=== PATIENT | male | born 1950 | race Caucasian/White ===

== ENCOUNTER 2017-04-21 17:14 | Inpatient (IN) | payer OTHER ==
[~2017-04-21] VITALS: Ht 180.3 cm; Wt 122.7 kg
[2017-04-21 17:55] LABS: BASO % 0.3 %; BASO ABS # 0.05 K/uL (0-0.2); COMPLETE YES; EOS % 1.6 %; HEMATOCRIT 44.6 % (42-52); IG% 0.3 %; LYMPH ABS # 2.26 K/uL (1.2-3.4); MEAN CELL VOLUME 90.5 fL (80-100); MEAN CORPUSCULAR HEMOGLOBIN 29.4 pg (25-34); MEAN CORPUSCULAR HGB CONC 32.5 g/dl (32-36); MEAN PLATELET VOLUME 10.5 fL (7.4-10.4); MONO % 6.2 %; NEUT % 77.6 %; PLATELET COUNT 406 K/uL (130-400); RED BLOOD COUNT 4.93 M/uL (4.7-6.1); WHITE BLOOD COUNT 16.12 K/uL (4.8-10.8)
[2017-04-21 18:03] LABS: PROTHROMBIN TIME (PATIENT) 11.1 SECONDS (9.0-12.0)
[2017-04-21 18:17] LABS: ALT/SGPT 25 U/L (12-78); AST/SGOT 18 U/L (15-37); BLOOD UREA NITROGEN 15 mg/dl (7-18); BUN/CREATININE RATIO 13.9 (10-20); CALCIUM 9.1 mg/dl (8.5-10.1); CARBON DIOXIDE 29 mmol/L (21-32); CHLORIDE 100 mmol/L (98-107); GLUCOSE 239 mg/dl (70-99); MAGNESIUM 2.1 mg/dl (1.8-2.4); POTASSIUM 4.5 mmol/L (3.5-5.1); SODIUM 135 mmol/L (136-145)
--- NOTE | 2017-04-21 18:17 | EMERGENCY ROOM VISIT NOTE ---
History Report prepared by Kendal: aMrcie Osborn Under the Supervision of: Dr. Henrique Rai D.O. 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 The patient states that he was at the [facility] fair when he began to feel weak, dizzy, and short of breath. He reports that he has a history of cancer and had his right lung removed and notes that the shortness of breath is not unusual. He notes that he has increased leg swelling, decreased appetite, and urinary incontinence. The patient denies any chest pain. He reports a history of diabetes and states that he is not on any blood thinners. He notes that he has open wounds on both of his legs that he sees the wound clinic for. Source of History: patient Onset: just INSTRUMENT MECHANIC Position: other (global) Quality: other (SOB) Timing: constant Associated Symptoms: No chest pain Note: He notes that he has increased leg swelling, decreased appetite, and urinary incontinence. Review of Systems See HPI for pertinent positives & negatives. A total of 10 systems reviewed and were otherwise negative. Past Medical & Surgical Medical Problems: (1) Cancer (2) Diabetes Family History No pertinent family history stated. Social History Marital Status: Housing Status: lives with family Current/Historical Medications Scheduled Allopurinol (Zyloprim), 300 MG PO DAILY Furosemide (Lasix), 40 MG PO DAILY Gabapentin (Neurontin), 300 MG PO TID Glipizide (Glucotrol), 10 MG PO DAILY Lisinopril (Zestril), 2.5 MG PO DAILY Sertraline (Zoloft), 50 MG PO DAILY Simvastatin (Zocor), 20 MG PO QPM Allergies Coded Allergies: No Known Allergies (Unverified , 04/21/17) Physical Exam Vital Signs Date Time Temp Pulse Resp B/P (MAP) Pulse Ox O2 Delivery O2 Flow Rate FiO2 04/21/17 18:58 104 22 121/70 95 Nasal Cannula 4.0 04/21/17 18:42 106 20 119/71 93 Nasal Cannula 04/21/17 17:15 88 Room Air 04/21/17 17:15 38.5 120 24 131/71 88 Room Air Physical Exam GENERAL: Patient is awake, alert, very anxious appearing, appears to be in significant distress. EYES: The conjunctivae are clear. The pupils are round and reactive. EARS, NOSE, MOUTH AND THROAT: The nose is without any evidence of any deformity. Mucous membranes are moist tongue is midline NECK: The neck is nontender and supple. RESPIRATORY: Lung sounds diminished throughout with significant tachypnea and conversational dyspnea CARDIOVASCULAR: Tachycardic rate and regularrhythm noted there no murmurs rubs or gallops normal S1 normal S2 GASTROINTESTINAL: The abdomen is soft. Bowel sounds are present in all quadrants. Abdomen is nontender MUSCULOSKELETAL/EXTREMITIES: There is no evidence of gross deformity full range of motion is noted in the hips and shoulders SKIN: Diffuse erythema noted to both extremities with edema, he has an appearance of a psoriatic rash NEUROLOGIC: Patient is awake alert and oriented x3 Medical Decision & Procedures ER Provider Diagnostic Interpretation: X-ray results as stated below per interpretation by me and the radiologist. SINGLE VIEW CHEST FINDINGS: An AP, portable, upright chest radiograph is obtained. No prior studies are available for comparison at the time of dictation. The examination is degraded by portable technique and patient rotation. There is complete opacification of the right hemithorax. The left lung appears clear. The cardiac mediastinal silhouette is of secured. No pneumothorax is seen. The skeletal structures are osteopenic. Posttraumatic versus postoperative changes identified in the right sided ribs. IMPRESSION: 1. There is complete opacification of the right hemithorax. This is likely filled with fluid, and may be on a postoperative basis if there has been a history of right-sided pneumonectomy. Correlation with the clinical/surgical history will be essential. 2. The left lung appears clear. Electronically signed by: Jama Moctezuma M.D. 04/21/2017 6:57 PM Dictated Date/Time: 04/21/2017 6:56 PM Laboratory Results 04/21/17 17:10 Red Blood Count 4.93, Mean Corpuscular Volume 90.5, Mean Corpuscular Hemoglobin 29.4, Mean Corpuscular Hemoglobin Concent 32.5, Mean Platelet Volume 10.5, Neutrophils (%) (Auto) 77.6, Lymphocytes (%) (Auto) 14.0, Monocytes (%) (Auto) 6.2, Eosinophils (%) (Auto) 1.6, Basophils (%) (Auto) 0.3, Neutrophils # (Auto) 12.51, Lymphocytes # (Auto) 2.26, Monocytes # (Auto) 1.00, Eosinophils # (Auto) 0.25, Basophils # (Auto) 0.05 04/21/17 17:10 Test 04/21/17 17:10 04/21/17 18:00 04/21/17 18:06 04/21/17 18:15 White Blood Count 16.12 K/uL (4.8-10.8) Red Blood Count 4.93 M/uL (4.7-6.1) Hemoglobin 14.5 g/dL (14.0-18.0) Hematocrit 44.6 % (42-52) Mean Corpuscular Volume 90.5 fL (80-100) Mean Corpuscular Hemoglobin 29.4 pg (25-34) Mean Corpuscular Hemoglobin Concent 32.5 g/dl (32-36) Platelet Count 406 K/uL (130-400) Mean Platelet Volume 10.5 fL (7.4-10.4) Neutrophils (%) (Auto) 77.6 % Lymphocytes (%) (Auto) 14.0 % Monocytes (%) (Auto) 6.2 % Eosinophils (%) (Auto) 1.6 % Basophils (%) (Auto) 0.3 % Neutrophils # (Auto) 12.51 K/uL (1.4-6.5) Lymphocytes # (Auto) 2.26 K/uL (1.2-3.4) Monocytes # (Auto) 1.00 K/uL (0.11-0.59) Eosinophils # (Auto) 0.25 K/uL (0-0.5) Basophils # (Auto) 0.05 K/uL (0-0.2) RDW Standard Deviation 49.8 fL (36.4-46.3) RDW Coefficient of Variation 15.0 % (11.5-14.5) Immature Granulocyte % (Auto) 0.3 % Immature Granulocyte # (Auto) 0.05 K/uL (0.00-0.02) Erythrocyte Sedimentation Rate > 90 mm/hr (0-14) Prothrombin Time 11.1 SECONDS (9.0-12.0) Prothromb Time International Ratio 1.0 (0.9-1.1) Activated Partial Thromboplast Time 26.2 SECONDS (21.0-31.0) Partial Thromboplastin Ratio 1.0 Anion Gap 6.0 mmol/L (3-11) Est Creatinine Clear Calc Drug Dose 85.9 ml/min Estimated GFR () 79.5 Estimated GFR (Non- 68.6 BUN/Creatinine Ratio 13.9 (10-20) Calcium Level 9.1 mg/dl (8.5-10.1) Phosphorus Level 2.2 mg/dl (2.5-4.9) Magnesium Level 2.1 mg/dl (1.8-2.4) Total Bilirubin 0.5 mg/dl (0.2-1) Aspartate Amino Transf (AST/SGOT) 18 U/L (15-37) Alanine Aminotransferase (ALT/SGPT) 25 U/L (12-78) Alkaline Phosphatase 133 U/L (45-117) Total Creatine Kinase 47 U/L (39-308) Creatine Kinase MB 0.5 ng/ml (0.5-3.6) Creatine Kinase MB Ratio 1.1 (0-3.0) Troponin I < 0.015 ng/ml (0-0.045) C-Reactive Protein 3.88 mg/dl (0-0.29) Pro-B-Type Natriuretic Peptide 99 pg/ml (0-900) Total Protein 8.7 gm/dl (6.4-8.2) Albumin 3.2 gm/dl (3.4-5.0) Globulin 5.5 gm/dl (2.5-4.0) Albumin/Globulin Ratio 0.6 (0.9-2) Lipase 146 U/L (73-393) Thyroid Stimulating Hormone (TSH) 2.050 uIu/ml (0.300-4.500) Venous Blood pH 7.37 (7.36-7.41) Venous Blood Partial Pressure CO2 57 mmHg (38.0-50.0) Venous Blood Partial Pressure O2 36 mmHg Venous Blood HCO3 32 mmol/L Venous Blood Oxygen Saturation 68.6 % Venous Blood Base Excess 4.9 mEq/L Bedside Lactic Acid Venous 2.19 mmol/L (0.90-1.70) Test 04/21/17 19:46 Laboratory results per my review. Medications Administered Medications (Trade) Dose Ordered Sig/Hunter Route Start Time Stop Time Status Last Admin Dose Admin Sodium Chloride 1,000 ml @ 999 mls/hr Q1H1M STAT IV 04/21/17 19:34 04/21/17 20:34 04/21/17 20:05 999 MLS/HR Sodium Chloride 1,000 ml @ 250 mls/hr Q4H STAT IV 04/21/17 19:34 04/21/17 23:33 04/21/17 20:05 250 MLS/HR Piperacillin Sod/ Tazobactam Sod (Zosyn Iv) 4.5 gm NOW STAT IV 04/21/17 19:34 04/21/17 19:35 DC 04/21/17 20:04 4.5 GM ECG Indication: SOB/dyspnea Rate (beats per minute): 108 Rhythm: sinus tachycardia Findings: 1st degree AV block, RBBB Comparison ECG Date: no prior available ED Course 1722: The patient was evaluated in room A7. A complete history and physical examination were performed. 1845: I reevaluated and updated the patient. 1933: Zosyn IV 4.5gm IV, NSS 1,000 ml @ 250 mls/hr IV, NSS 1,000 ml @ 999 mls/ hr IV. 1935: I discussed the patient's case with Dr. Sharif Giron. The patient will be evaluated for further management. 1941: Upon reevaluation, the patient is doing well. I discussed results and treatment plan with the patient. He verbalizes agreement and understanding. I spoke with Dr. Packer. The patient will be evaluated for further management and care. Medical Decision Differential diagnosis: Etiologies such as infections, reactive airway disease, pneumonia, pneumothorax , COPD, CHF, cardiac ischemia, pulmonary embolism, musculoskeletal, gastrointestinal, as well as others were entertained. Nursing notes reviewed. The patient is a 66-year-old male who presented to the emergency department for an evaluation of a fever as well as lower extremity erythema. He also describes difficulty breathing. He was very dyspneic on my initial valuation. The chest x- ray did not show signs of pulmonary edema or pneumonia. I discussed the patient' s laboratory radiographic studies with him. He was treated with IV fluids and IV antibiotics in emergency department. I discussed his case with the on-call [facility] hospitalist group. They've agreed to evaluate the patient in the emergency apartment for further management and disposition. Medication Reconcilliation Current Medication List: was personally reviewed by me Blood Pressure Screening Patient's blood pressure: Normal blood pressure Blood pressure disposition: Did not require urgent referral Consults Time Called: 1929 Consulting Physician: Dr. Sharif Giron Returned Call: 1935 I discussed the patient's case with Dr. Sharif Giron. The patient will be evaluated for further management. Impression Primary Impression: Cellulitis Additional Impressions: SOB (shortness of breath) Fever Hypoxia Scribe Attestation The scribe's documentation has been prepared under my direction and personally reviewed by me in its entirety. I confirm that the note above accurately reflects all work, treatment, procedures, and medical decision making performed by me. Departure Information Dispostion Being Evaluated By Hospitalist Referrals No Doctor, Assigned (PCP) Problem Qualifiers Primary Impression: Cellulitis Site of cellulitis: extremity Site of cellulitis of extremity: lower extremity Laterality: unspecified laterality Qualified Codes: L03.119 - Cellulitis of unspecified part of limb Additional Impressions: Fever Fever type: unspecified Qualified Codes: R50.9 - Fever, unspecified
[2017-04-21 18:19] LABS: VEN BLD GAS O2 SATURATION 68.6 %; VEN BLOOD GAS BASE EXCESS 4.9 mEq/L
[2017-04-21 18:20] LABS: ALB/GLOB RATIO 0.6 (0.9-2); ALKALINE PHOSPHATASE 133 U/L (45-117); C-REACTIVE PROTEIN 3.88 mg/dl (0-0.29); CKMB/CK RATIO 1.1 (0-3.0); PHOSPHORUS 2.2 mg/dl (2.5-4.9)
--- NOTE | 2017-04-21 18:59 | DIAGNOSTIC IMAGING REPORT ---
SINGLE VIEW CHEST CLINICAL HISTORY: Sepsis. Dyspnea. FINDINGS: An AP, portable, upright chest radiograph is obtained. No prior studies are available for comparison at the time of dictation. The examination is degraded by portable technique and patient rotation. There is complete opacification of the right hemithorax. The left lung appears clear. The cardiac mediastinal silhouette is of secured. No pneumothorax is seen. The skeletal structures are osteopenic. Posttraumatic versus postoperative changes identified in the right sided ribs. IMPRESSION: 1. There is complete opacification of the right hemithorax. This is likely filled with fluid, and may be on a postoperative basis if there has been a history of right-sided pneumonectomy. Correlation with the clinical/surgical history will be essential. 2. The left lung appears clear. Electronically signed by: Jama Moctezuma M.D. 04/21/2017 6:57 PM Dictated Date/Time: 04/21/2017 6:56 PM
[2017-04-21] MEDS ORDERED: GLIP10TA9 PO (19:26)
[2017-04-21] MEDS ORDERED: LISI-789 PO (19:26)
[2017-04-21] MEDS ORDERED: ALLO300T2 PO (19:26)
[2017-04-21] MEDS ORDERED: SERT-234 PO (19:26)
[2017-04-21] MEDS ORDERED: SIMV20TA2 PO (19:26)
[2017-04-21] MEDS ORDERED: GABA-113 PO (19:26)
[2017-04-21] MEDS ORDERED: FRS/40 PO (19:26)
[2017-04-21] MEDS ORDERED: PIPERACILLIN/TAZOBACTAM 4.5 GM/100ML D5W IV STA (19:34)
[2017-04-21] MEDS ORDERED: SODIUM CHLORIDE 0.9% 1000ML 1,000 ML IV STA ×2 (19:34)
[2017-04-21] MEDS ORDERED: LEVALBUTEROL/IPRATROPIUM NEB INH STA (20:21)
[2017-04-21] MEDS ORDERED: ACETAMINOPHEN 325 MG TAB PO ONE (20:21)
[2017-04-21] MEDS ORDERED: ACETAMINOPHEN 325 MG TAB PO PRN ×2 (20:30→23:15)
[2017-04-21] MEDS ORDERED: LEVALBUTEROL/IPRATROPIUM NEB INH PRN (20:30)
[2017-04-21 20:41] LABS: ALLEN TEST POS (POS); ARTERIAL BLD GAS O2 SATURATION 95.9 % (90-95); ARTERIAL BLOOD GAS BASE EXCESS 4.9 mEq/L (-9-1.8); ARTERIAL BLOOD GAS HCO3 31 mmol/L (19-24); ARTERIAL BLOOD GAS PO2 85 mm/Hg (80-95); ARTERIAL BLOOD GAS pH 7.39 (7.35-7.45); O2 ADMINISTRATION 4 L
[2017-04-21] MEDS ORDERED: IPRATROPIUM BROMIDE NEB SOLN 0.02% 2.5 ML VIAL INH PRN (20:45)
[2017-04-21] MEDS ORDERED: LEVALBUTEROL 1.25MG/0.5ML NEB INH PRN (20:45)
[2017-04-21 20:49] VITALS: PULSE 96; O2SAT 98
[2017-04-21] MEDS ORDERED: LEVALBUTEROL 1.25MG/0.5ML NEB INH SCH (21:45)
[2017-04-21] MEDS ORDERED: IPRATROPIUM BROMIDE NEB SOLN 0.02% 2.5 ML VIAL INH ONE (21:45)
[2017-04-21 22:08] LABS: URINE APPEARANCE TURBID (CLEAR); URINE BILIRUBIN NEG (NEG); URINE COLOR YELLOW; URINE EPITHELIAL CELL AUTO >30 /lpf (0-5); URINE NITRITE NEG (NEG); UROBILINOGEN NEG (NEG); ZZUR CULT IF INDIC CLEAN CATCH NO
[2017-04-21 22:12] LABS: MANUAL MICROSCOPIC REQUIRED? NO; REVIEW REQ? NO
[2017-04-21] MEDS ORDERED: OPTIRAY 320 IV PRN (23:00)
[2017-04-21] MEDS ORDERED: INSULIN GLARGINE SOLOSTAR 100 UNITS/ML 3 ML PEN SC ONE (23:02)
[2017-04-21] MEDS ORDERED: INSULIN ASPART 100 UNITS/ML 3 ML PEN SC ONE (23:03)
[2017-04-21] MEDS ORDERED: GLUCOSE 10 TABS/TUBE PO PRN (23:15)
[2017-04-21] MEDS ORDERED: GLUCAGON FOR INJ 1 MG VIAL SQ PRN (23:15)
[2017-04-21] MEDS ORDERED: TRAMADOL HCL 50 MG TAB PO PRN (23:15)
[2017-04-21] MEDS ORDERED: SODIUM CHLORIDE 0.9% 1000ML 1,000 ML IV ONE (23:15)
[2017-04-21] MEDS ORDERED: MoRPHine SULFATE 4 MG/ML 1 ML CARP\\VIAL IV PRN (23:15)
[2017-04-21] MEDS ORDERED: ONDANSETRON INJ 2 MG/ML 2 ML VIAL IV PRN (23:15)
[2017-04-21] MEDS ORDERED: DEXTROSE 50% 50 ML SYR IV PRN (23:15)
[2017-04-21] MEDS ORDERED: GLUCOSE 40% GEL 15 GM TUBE PO PRN (23:15)
[2017-04-21] MEDS ORDERED: NITROGLYCERIN 0.4 MG SL PER TAB CHARGE SL PRN (23:15)
[2017-04-21] MEDS ORDERED: INSULIN GLARGINE SOLOSTAR 100 UNITS/ML 3 ML PEN SC STA (23:17)
[2017-04-21] MEDS ORDERED: METHYLPREDNISOLONE IV 20 MG in SYRINGE 0 ML IV STA (23:18)
[2017-04-22] VITALS (11 sets, daily range): BP systolic 100–160; BP diastolic 65–90; PULSE 83–98; TEMP 36.4–36.8; O2SAT 92–100; Ht 180.3 cm; Wt 122.7 kg
[2017-04-22] MEDS: IPRATROPIUM BROMIDE NEB SOLN 0.02% 2.5 ML VIAL INH SCH ×4 (01:42→19:29)
[2017-04-22] MEDS: LEVALBUTEROL 1.25MG/0.5ML NEB INH SCH ×4 (01:42→19:29)
[2017-04-22] MEDS ORDERED: DOXYCYCLINE IV 100 MG in DEXTROSE 5% 100ML 100 ML IV ONE (02:33)
[2017-04-22] MEDS ORDERED: LEVALBUTEROL/IPRATROPIUM NEB INH SCH (03:00)
[2017-04-22 05:52] LABS: BASO % 0.3 %; BASO ABS # 0.04 K/uL (0-0.2); COMPLETE YES; EOS % 0.1 %; HEMATOCRIT 44.4 % (42-52); IG% 0.2 %; LYMPH % 10.4 %; MEAN CORPUSCULAR HEMOGLOBIN 28.9 pg (25-34); MEAN CORPUSCULAR HGB CONC 31.8 g/dl (32-36); MONO % 0.7 %; NEUT % 88.3 %; PLATELET COUNT 335 K/uL (130-400); RED BLOOD COUNT 4.88 M/uL (4.7-6.1); WHITE BLOOD COUNT 12.46 K/uL (4.8-10.8)
[2017-04-22 06:17] LABS: BLOOD UREA NITROGEN 14 mg/dl (7-18); BUN/CREATININE RATIO 13.8 (10-20); CARBON DIOXIDE 33 mmol/L (21-32); CHLORIDE 99 mmol/L (98-107); GLUCOSE 325 mg/dl (70-99); POTASSIUM 4.4 mmol/L (3.5-5.1); SODIUM 136 mmol/L (136-145)
[2017-04-22 06:27] LABS: BETA-HYDROXYBUTYRATE 7.57 mg/dL (0.2-2.81)
[2017-04-22] MEDS ORDERED: INSULIN ASPART 100 UNITS/ML 3 ML PEN SC ONE (06:29)
[2017-04-22] MEDS ORDERED: INSULIN GLARGINE SOLOSTAR 100 UNITS/ML 3 ML PEN SC STA (06:34)
[2017-04-22] MEDS ORDERED: INSULIN GLARGINE SOLOSTAR 100 UNITS/ML 3 ML PEN SC ONE (06:38)
[2017-04-22] MEDS ORDERED: SODIUM CHLORIDE 0.9% 500ML 500 ML IV ONE (06:45)
--- NOTE | 2017-04-22 06:55 | DIAGNOSTIC IMAGING REPORT ---
GALLBLADDER-ABD LIMITED HISTORY: 66 years-old Male fever, decreased appetite, ro cholecystitis COMPARISON: CTA of the chest of same day TECHNIQUE: Multiple real-time sonographic images of the abdominal upper quadrant were obtained assessing grayscale appearance and color flow. FINDINGS: Pancreas is difficult to visualize secondary to body habitus and obscuring bowel gas the imaged portions appearing to be unremarkable. The patient also perfuses to be placed in the decubitus position. The hepatic parenchyma is diffusely echogenic with poor through transmission compatible with fatty infiltration. There appears be a cluster of cysts within the left lobe the liver which overall measures up to approximately 1.4 x 1.0 x 0.7 cm with thin internal septa. These lesions can also be seen on the CT the chest of same day. Liver measures up to 18.7 cm in greatest dimension. Colonic stallworth the nipple limits of normal at 3 mm. No common bile duct dilation. Common bile duct measures up to 3.5 mm. Stones and layering sludge are seen within the gallbladder lumen. There is minimal pericholecystic fluid near the gallbladder fundus. Sonographic Riggs sign reported as negative. Imaged right kidney is unremarkable without hydronephrosis. IMPRESSION: 1. Cholelithiasis and gallbladder sludge noted with the gallbladder wall measuring in the upper limits of normal with adjacent trace pericholecystic fluid. These findings are suspicious for developing acute cholecystitis. 2. Hepatomegaly with hepatosteatosis. 3. No biliary duct dilation. 4. Mildly limited study as above. The above report was generated using voice recognition software. It may contain grammatical, syntax or spelling errors. Electronically signed by: Alfredo Richards M.D. 04/22/2017 6:54 AM Dictated Date/Time: 04/22/2017 6:49 AM
[2017-04-22] MEDS ORDERED: INSULIN ASPART 100 UNITS/ML 3 ML PEN SC SCH (07:00)
--- NOTE | 2017-04-22 07:19 | HISTORY & PHYSICAL EXAMINATION ---
DATE OF ADMISSION: 04/21/2017 PRIMARY CARE DOCTOR: From the [place], JOANA Harris CHIEF COMPLAINT: Breathing difficulty. HISTORY OF PRESENT ILLNESS: History obtained from the patient, , and ER provider. Patient is a resident of [facility] currently in town for the [facility]. Medical history significant for right lung cancer status post surgery, incomplete chemotherapy secondary to intolerance (2011), chronic respiratory failure on home O2, ANGELES on CPAP, Agent orange exposure, past tobacco abuse, hypertension, DM2 insulin requiring, mood disorder, gout. Chronic sacral, leg sores. Yesterday, he began feeling weak, dizzy, more short of breath than usual. No unusual cough symptoms. No chest pain. Patient denies abdominal pain. Some leg swelling, no unusual drainage from the legs, poor appetite. Some urinary incontinence. At the Emergency Room, the patient received Zosyn for sepsis. MEDICAL HISTORY: As above. Wound Care center visits in [place], [place]. SURGERIES: lung lobectomy, hernia surgery. HOME MEDICATIONS: Include Lantus 70 units at night as per , Zyloprim, Lasix , Glucotrol, Neurontin, Zestril, Zoloft, and Zocor. ALLERGIES: No known drug allergies. FAMILY HISTORY: Diabetes. PERSONAL AND SOCIAL HISTORY: Past tobacco abuse. No chronic intake of alcoholic beverages. Retired truck terminal manager. REVIEW OF SYSTEMS: As per HPI, all other ROS negative. PHYSICAL EXAMINATION: VITAL SIGNS: Blood pressure was noted to be 131/70, pulse rate 120, RR 24-26, sats 88 on room air. 94 on 4 liters. GENERAL: Noted to be in minimal respiratory distress, morbidly obese. SKIN: Normal color. HEENT: [place] palpebral conjunctivae. Dry mucosa. NECK: Short neck. LUNGS: Occasional wheeze. HEART: Tachycardic. ABDOMEN: Some distention. No overt tenderness. EXTREMITIES: Leg wrappings on both lower extremities BACK: Tender induration on the sacrum. NEUROLOGIC: No gross focality. LABORATORY AND IMAGING DATA: Hemoglobin was noted to be 14.5, hematocrit 41.60, white cells 16.12, platelets 406. Sodium noted to be 140, potassium 3.7, chloride 100, CO2 of 29, BUN 50, creatinine 1, glucose noted to be 239. trop 0 Lactic acid 1.2. pH 7.39, pCO2 50, pO2 85 on 4 liters. EKG as per my interpretation rate 110, RAD, right bundle branch block CT pelvis, no fluid collection to suggest abscess, infrarenal abdominal aortic aneurysm measuring [address] chest, no pulmonary embolism, no postop changes right pneumonectomy with fluid collection, calcification, aneurysmal dilatation of ascending aorta, distended gallbladder with gallstones, mild fatty liver, right adrenal palpable myelolipoma UA TRACE WBC ESTERASE, KETONES, WBC 1-5 ASSESSMENT: 1. Sepsis possible sources : lower extremity cellulitis/wounds, sacral swelling ? UTI ro gallbladder pathology. 2. Chronic respiratory failure on home O2 ANGELES on CPAP some amount of respiratory distress/wheezing initially noted at the ER 3. history of lung cancer status post surgery and chemotherapy (2011) 4. HTN, stable 5. DM2, insulin requiring currently hyperglycemic unknown control at home. 6. past tobacco abuse 7. Bilateral leg swelling secondary to cellulitis ro DVT 8. PVD on CT PLAN: PCU. IVF Cultures. Doxycycline, Zosyn for now. Check a gallbladder ultrasound ro cholecystitis. Lower extremity ultrasound, rule out DVT. Nebs prn wheezing, Solu-Medrol 1 dose. basal Lantus, ISS BG goal 140-180, check hemoglobin A1c Periodic outpatient follow-up surveillance imaging for PVD on CT PT, OT eval. DVT prophylaxis, Lovenox subQ. Full code. Patient's requesting for updates from providers. Mrs. Charisma Estrada at [phone]. MTDD
--- NOTE | 2017-04-22 07:26 | DIAGNOSTIC IMAGING REPORT ---
CT ANGIOGRAPHY OF THE CHEST, PULMONARY EMBOLUS PROTOCOL CLINICAL HISTORY: Shortness of breath and hypoxia. COMPARISON STUDY: Chest radiograph April 21, 2017. TECHNIQUE: Following IV administration of 92 mL of Optiray-320, helical axial images of the chest were obtained utilizing the pulmonary embolus protocol. Maximal intensity projections and sagittal and coronal reformats were viewed on an independent 3D workstation. IV contrast was administered without complication. A dose lowering technique was utilized adhering to the principles of ALARA. FINDINGS: No pulmonary emboli are identified. The patient is status post right pneumonectomy. There is fluid within the right pneumonectomy cavity as expected. There is mild thickening and calcification at the periphery of the pneumonectomy cavity. This is likely within normal limits. No enlarged thoracic nodes are present. Central airways are patent. There is no pneumothorax or left pleural effusion. No suspicious osseous lesions are present. There are gallstones within the gallbladder. The gallbladder is mildly distended without pericholecystic infiltration. A 2.7 cm fat-containing right adrenal lesion suggest a myelolipoma which is benign. There is a suspected lateral segment hepatic cyst. There may be fatty infiltration of the liver. IMPRESSION: 1. No pulmonary emboli identified. 2. Status post right pneumonectomy. Fluid-filled pneumonectomy cavity as expected. Soft tissue thickening and calcification at the periphery of the pneumonectomy cavity is likely within normal limits although could be correlated with prior post operative imaging studies to ensure stability. 3. Moderate cardiomegaly and moderate coronary artery calcification. No pericardial effusion. No thoracic aortic dissection. 4. Cholelithiasis with mild gallbladder distention. No pericholecystic infiltration. This could be correlated with right upper quadrant pain. Electronically signed by: Lincoln Kat M.D. 04/22/2017 7:24 AM Dictated Date/Time: 04/22/2017 7:14 AM
--- NOTE | 2017-04-22 07:28 | DIAGNOSTIC IMAGING REPORT ---
PELVIS W/IV CONT ONLY (CT) HISTORY: 66 years-old Male presents with acute pelvic pain. Concern for pelvic abscess. COMPARISON: Right upper quadrant ultrasound 04/21/2017 TECHNIQUE: Multiple axial CT images of the pelvis were obtained following the intravenous administration of 92 mL Optiray 320. A dose lowering technique was used consistent with the principals of CATIE. FINDINGS: Fusiform aneurysmal dilation of the infrarenal abdominal aorta is partially imaged measuring up to 4.1 x 4.1 cm in AP and transverse dimension. There is a moderate degree of mixed plaquing involving the aorta and iliac vasculature. There are scattered mildly prominent inguinal and iliac chain lymph nodes seen with central fatty melodie. Index right external iliac chain lymph node is seen measuring 2.0 x 1.5 cm on image 146. Index enlarged left inguinal chain lymph node is seen on image 284 measuring 2.2 x 1.2 cm. There is mild to moderate atrophy of the gluteal musculature. No focal phlegmon or drainable fluid collection is seen within the soft tissues. The imaged inferior pole kidneys appear unremarkable. Imaged bowel is within normal limits without focal wall thickening or inflammatory changes identified. The appendix and terminal ileum also appear to be normal. No pelvic abscess is identified. Prostate is mildly prominent with central coarse parenchymal calcifications. Facet arthropathy involves the lower lumbar spine. There is mild intervertebral disc space narrowing at L5-S1. IMPRESSION: 1. No acute intrapelvic abnormality identified. No focal phlegmon or pelvic abscess identified. 2. Partially imaged fusiform infrarenal abdominal aortic aneurysm is seen, 4.1 x 4.1 cm. 3. Nonspecific prominent and mildly enlarged pelvic sidewall, bilateral iliac and inguinal chain adenopathy as above. 4. Normal appendix. The above report was generated using voice recognition software. It may contain grammatical, syntax or spelling errors. Electronically signed by: Alfredo Richards M.D. 04/22/2017 7:27 AM Dictated Date/Time: 04/22/2017 7:20 AM
[2017-04-22 07:31] LABS: ESTIMATED AVERAGE GLUCOSE 235 mg/dl; HA1C FLAG Normal (Normal)
--- NOTE | 2017-04-22 07:32 | DIAGNOSTIC IMAGING REPORT ---
VENOUS DOPPLER LWR EXT BILA CLINICAL HISTORY: 66 years-old Male presenting with leg swelling. TECHNIQUE: Real-time grayscale and color and spectral Doppler ultrasound imaging of the veins of the bilateral lower extremities was performed. Compression and augmentation were also utilized. COMPARISON: None. FINDINGS: Right: Common femoral vein: Patent. Femoral vein: Patent. Greater saphenous vein: Patent. Popliteal vein: Patent. Calf veins: Limited visualization. Left: Common femoral vein: Patent. Femoral vein: Patent. Greater saphenous vein: Patent. Popliteal vein: Patent. Calf veins: Limited visualization. Other: None. IMPRESSION: No evidence of deep venous thrombosis. Electronically signed by: Moy Colunga M.D. 04/22/2017 7:31 AM Dictated Date/Time: 04/22/2017 7:30 AM
[2017-04-22] MEDS ORDERED: SODIUM CHLORIDE 0.9% 1000ML 1,000 ML IV ONE (08:00)
[2017-04-22] MEDS: GABAPENTIN 300 MG CAP PO SCH ×3 (08:18→20:32)
[2017-04-22] MEDS: SERTRALINE HCL 50 MG TAB PO SCH (08:19)
[2017-04-22] MEDS: ALLOPURINOL 300 MG TAB PO SCH (08:19)
[2017-04-22] MEDS: LISINOPRIL 2.5 MG TAB PO SCH (08:19)
[2017-04-22] MEDS: INSULIN ASPART 100 UNITS/ML 3 ML PEN SC SCH ×4 (08:21→20:35)
[2017-04-22] MEDS: ENOXAPARIN 40 MG/0.4 ML SYR SC SCH (08:49)
[2017-04-22] MEDS ORDERED: INSULIN GLARGINE SOLOSTAR 100 UNITS/ML 3 ML PEN SC SCH ×2 (09:00→21:00)
[2017-04-22] MEDS ORDERED: PIPERACILL/TAZOBAC CONSULT ACTIVE PRN (09:00)
--- NOTE | 2017-04-22 11:59 | Progress Note ---
Medicine Progress Note Date & Time of Visit: Apr 22, 2017 at 09:20 . Subjective No fever. Dyspnea at baseline. No significant cough. No chest pain. No abdominal pain, nausea, vomiting. No urinary symptoms. . Objective Last 8 Hrs Date Time Temp Pulse Resp B/P (MAP) Pulse Ox O2 Delivery O2 Flow Rate FiO2 04/22/17 11:12 36.4 86 20 123/70 (87) 96 Nasal Cannula 3.0 04/22/17 08:00 Nasal Cannula 3.0 CPAP 04/22/17 07:15 36.6 93 20 117/72 (87) 95 BiPAP 04/22/17 07:14 84 16 94 BiPAP/CPAP 3.0 04/22/17 04:30 CPAP 3.0 04/22/17 04:24 36.4 83 20 156/90 (112) 95 CPAP 3.0 Physical Exam: General- no acute distress Eyes- anicteric Lungs- decreased breath sounds right hemithorax Heart- RRR Abdomen- + BS, soft, mild-moderate RUQ tenderness to deep palpation without rebound or guarding Extremities- 2+ pretibial edema Neuro- alert 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 Laboratory Results: Last 24 Hours Test 04/21/17 17:10 04/21/17 18:00 04/21/17 18:06 04/21/17 18:15 White Blood Count 16.12 K/uL Red Blood Count 4.93 M/uL Hemoglobin 14.5 g/dL Hematocrit 44.6 % Mean Corpuscular Volume 90.5 fL Mean Corpuscular Hemoglobin 29.4 pg Mean Corpuscular Hemoglobin Concent 32.5 g/dl Platelet Count 406 K/uL Mean Platelet Volume 10.5 fL Neutrophils (%) (Auto) 77.6 % Lymphocytes (%) (Auto) 14.0 % Monocytes (%) (Auto) 6.2 % Eosinophils (%) (Auto) 1.6 % Basophils (%) (Auto) 0.3 % Neutrophils # (Auto) 12.51 K/uL Lymphocytes # (Auto) 2.26 K/uL Monocytes # (Auto) 1.00 K/uL Eosinophils # (Auto) 0.25 K/uL Basophils # (Auto) 0.05 K/uL RDW Standard Deviation 49.8 fL RDW Coefficient of Variation 15.0 % Immature Granulocyte % (Auto) 0.3 % Immature Granulocyte # (Auto) 0.05 K/uL Erythrocyte Sedimentation Rate > 90 mm/hr Prothrombin Time 11.1 SECONDS Prothromb Time International Ratio 1.0 Activated Partial Thromboplast Time 26.2 SECONDS Partial Thromboplastin Ratio 1.0 Sodium Level 135 mmol/L Potassium Level 4.5 mmol/L Chloride Level 100 mmol/L Carbon Dioxide Level 29 mmol/L Anion Gap 6.0 mmol/L Blood Urea Nitrogen 15 mg/dl Creatinine 1.10 mg/dl Est Creatinine Clear Calc Drug Dose 85.9 ml/min Estimated GFR () 79.5 Estimated GFR (Non- 68.6 BUN/Creatinine Ratio 13.9 Random Glucose 239 mg/dl Calcium Level 9.1 mg/dl Phosphorus Level 2.2 mg/dl Magnesium Level 2.1 mg/dl Total Bilirubin 0.5 mg/dl Aspartate Amino Transf (AST/SGOT) 18 U/L Alanine Aminotransferase (ALT/SGPT) 25 U/L Alkaline Phosphatase 133 U/L Total Creatine Kinase 47 U/L Creatine Kinase MB 0.5 ng/ml Creatine Kinase MB Ratio 1.1 Troponin I < 0.015 ng/ml C-Reactive Protein 3.88 mg/dl Pro-B-Type Natriuretic Peptide 99 pg/ml Total Protein 8.7 gm/dl Albumin 3.2 gm/dl Globulin 5.5 gm/dl Albumin/Globulin Ratio 0.6 Lipase 146 U/L Estimated Average Glucose 235 mg/dl Hemoglobin A1c 9.8 % Thyroid Stimulating Hormone (TSH) 2.050 uIu/ml Venous Blood pH 7.37 Venous Blood Partial Pressure CO2 57 mmHg Venous Blood Partial Pressure O2 36 mmHg Venous Blood HCO3 32 mmol/L Venous Blood Oxygen Saturation 68.6 % Venous Blood Base Excess 4.9 mEq/L Bedside Lactic Acid Venous 2.19 mmol/L Test 04/21/17 20:32 04/21/17 21:49 04/21/17 23:50 04/22/17 05:37 Arterial Blood pH 7.39 Arterial Blood Partial Pressure CO2 53 mmHg Arterial Blood Partial Pressure O2 85 mm/Hg Arterial Blood HCO3 31 mmol/L Arterial Blood Oxygen Saturation 95.9 % Arterial Blood Base Excess 4.9 mEq/L Arterial Blood Gas Delivery 4 L Jeffery Test POS Lactic Acid Level 1.2 mmol/L Urine Color YELLOW Urine Appearance TURBID Urine pH 5.0 Urine Specific [place] 1.030 Urine Protein 1+ Urine Glucose (UA) NEG Urine Ketones TRACE Urine Occult Blood NEG Urine Nitrite NEG Urine Bilirubin NEG Urine Urobilinogen NEG Urine Leukocyte Esterase TRACE Urine WBC (Auto) 5-10 /hpf Urine RBC (Auto) 0-4 /hpf Urine Hyaline Casts (Auto) 1-5 /lpf Urine Epithelial Cells (Auto) >30 /lpf Urine Bacteria (Auto) NEG Bedside Glucose 202 mg/dl White Blood Count 12.46 K/uL Red Blood Count 4.88 M/uL Hemoglobin 14.1 g/dL Hematocrit 44.4 % Mean Corpuscular Volume 91.0 fL Mean Corpuscular Hemoglobin 28.9 pg Mean Corpuscular Hemoglobin Concent 31.8 g/dl Platelet Count 335 K/uL Mean Platelet Volume 10.0 fL Neutrophils (%) (Auto) 88.3 % Lymphocytes (%) (Auto) 10.4 % Monocytes (%) (Auto) 0.7 % Eosinophils (%) (Auto) 0.1 % Basophils (%) (Auto) 0.3 % Neutrophils # (Auto) 10.99 K/uL Lymphocytes # (Auto) 1.30 K/uL Monocytes # (Auto) 0.09 K/uL Eosinophils # (Auto) 0.01 K/uL Basophils # (Auto) 0.04 K/uL RDW Standard Deviation 50.2 fL RDW Coefficient of Variation 14.9 % Immature Granulocyte % (Auto) 0.2 % Immature Granulocyte # (Auto) 0.03 K/uL Sodium Level 136 mmol/L Potassium Level 4.4 mmol/L Chloride Level 99 mmol/L Carbon Dioxide Level 33 mmol/L Anion Gap 4.0 mmol/L Blood Urea Nitrogen 14 mg/dl Creatinine 1.00 mg/dl Est Creatinine Clear Calc Drug Dose 94.3 ml/min Estimated GFR () 89.2 Estimated GFR (Non- 77.0 BUN/Creatinine Ratio 13.8 Random Glucose 325 mg/dl Calcium Level 9.0 mg/dl Troponin I < 0.015 ng/ml Beta-Hydroxybutyric Acid 7.57 mg/dL Test 04/22/17 06:43 04/22/17 07:57 Bedside Glucose 280 mg/dl 307 mg/dl Date/Time Source Procedure Growth Status 04/21/17 18:18 Blood Blood Culture Pending Received 04/21/17 18:00 Blood Blood Culture Pending Received 04/21/17 21:49 Urine , Clean Catch Urine Culture Pending Received Assessment & Plan PROBABLE SEPSIS Met criteria for sepsis per 2001 definition and current CMS guidelines. Temp was 38.5. Pulse 120 Resp 24 WBC 16,120 Lactate 2.19 Hemodynamically stable. Possible sources: pulmonary increasing dyspnea, stable cough, no left lung infiltrates on CXR or CT, postsurgical changes right hemithorax cellulitis chronic erythema and superficial ulcerations lower extremities , no change per patient biliary as discussed below Blood and urine cultures obtained in ED. Started on broad spectrum antibiotic coverage with piperacillin / tazobactam and doxycycline pending more data. Remains hemodynamically stable. Afebrile. Repeat lactate was 1.2. CHOLELITHIASIS / POSSIBLE CHOLECYSTITIS Cholelithiasis noted on CT of chest. US demonstrated cholelithiasis and gallbladder sludge with adjacent trace pericholecystic fluid. LFT's essentially normal. May have cholecystitis. HIDA scan ordered. Consult General Surgery once results of HIDA available. WORSENING DYSPNEA / CHRONIC HYPOXIC RESPIRATORY FAILURE Chronic SOB. History of COPD + lung Ca with right pneumonectomy. Uses supplemental O2 during most of the day and uses O2 with CPAP at night. O2 sat in ED on RA 88%. Worsening SOB at time of presentation could be due to respiratory infection, sepsis, or other factors. Pulmonary embolism ruled out by CTA. Pt states that dyspnea now back to baseline. Continue O2, nebs. HYPERTENSION Hemodynamically stable. DM TYPE 2 Not well controlled. Random glucose in ED 239. FBS this morning 325. Hgb A1C 9.8. Received methylprednisolone 20 mg x 1 in ED. Patient uses insulin at home, but doesn't know the dose. Manage with Lantus + NovoLog per protocol. Insulin infusion may be warranted if glycemic control does not improve. VTE PROPHYLAXIS Enoxaparin. INCOMPLETE DATA Patient uncertain about meds and details of medical history. Records from [place] requested. DISPOSITION To be determined. Receives primary care at [facility] and hospital care at [facility]. . Procedures: CTA chest CT pelvis US gallbladder venous duplex lower extremities IV meds . Current Inpatient Medications: Current Inpatient Medications Medications (Trade) Dose Ordered Sig/Hunter Route Start Time Stop Time Status Last Admin Dose Admin Ipratropium [place] (Atrovent 0.02% 0.5MG/2.5ML Neb) 0.5 mg Q4R PRN INH 04/21/17 20:45 05/21/17 20:44 Levalbuterol (Xopenex 1.25MG/ 0.5ML Neb) 1.25 mg Q4R PRN INH 04/21/17 20:45 05/21/17 20:44 Ioversol (Optiray 320) 100 ml UD PRN IV 04/21/17 23:00 04/25/17 22:59 Enoxaparin Sodium (Lovenox Inj) 40 mg Q24H SC 04/22/17 09:00 05/22/17 08:59 Acetaminophen (Tylenol Tab) 650 mg Q4H PRN PO 04/21/17 23:15 05/21/17 23:14 Nitroglycerin (Nitrostat Tab) 0.4 mg UD PRN SL 04/21/17 23:15 05/21/17 23:14 Glucose (Glucose 40% Gel) 15-30 GRAMS 15 GRAMS... UD PRN PO 04/21/17 23:15 05/21/17 23:14 Glucose (Glucose Chew Tab) 4-8 Tablets 4 Tabl... UD PRN PO 04/21/17 23:15 05/21/17 23:14 Dextrose (Dextrose 50% 50ML Syringe) 25-50ML OF 50% DW IV FOR... UD PRN IV 04/21/17 23:15 05/21/17 23:14 Glucagon (Glucagon Inj) 1 mg UD PRN SQ 04/21/17 23:15 05/21/17 23:14 Tramadol HCl (Ultram Tab) not relieved by tylenol @ Q6H PRN PO 04/21/17 23:15 05/21/17 23:14 Morphine Sulfate (MoRPHine SULFATE INJ) 4 mg Q3H PRN IV 04/21/17 23:15 05/05/17 23:14 Ondansetron HCl (Zofran Inj) 4 mg Q6H PRN IV 04/21/17 23:15 05/21/17 23:14 Allopurinol (Zyloprim Tab) 300 mg DAILY PO 04/22/17 09:00 05/22/17 08:59 04/22/17 08:19 300 MG Gabapentin (Neurontin Cap) 300 mg TID PO 04/22/17 09:00 05/22/17 08:59 04/22/17 08:18 300 MG Lisinopril (Zestril Tab) 2.5 mg DAILY PO 04/22/17 09:00 05/22/17 08:59 04/22/17 08:19 2.5 MG Sertraline HCl (Zoloft Tab) 50 mg DAILY PO 04/22/17 09:00 05/22/17 08:59 04/22/17 08:19 50 MG Simvastatin (Zocor Tab) 20 mg QPM PO 04/22/17 21:00 05/22/17 20:59 Ipratropium [place] (Atrovent 0.02% 0.5MG/2.5ML Neb) 0.5 mg Q6R INH 04/22/17 03:00 05/22/17 02:59 04/22/17 07:11 0.5 MG Levalbuterol (Xopenex 1.25MG/ 0.5ML Neb) 1.25 mg Q6R INH 04/22/17 03:00 05/22/17 02:59 04/22/17 07:11 1.25 MG Doxycycline Hyclate 100 mg/ Dextrose 110 ml @ 50 mls/hr BID@0300,1500 IV 04/22/17 15:00 05/02/17 14:59 Piperacillin Sod/ Tazobactam Sod (Consult) 1 ea DAILY PRN N/A 04/22/17 09:00 05/22/17 08:59 Insulin Aspart (novoLOG ASPART) SLIDING SCALE If C... ACHS SC 04/22/17 11:00 05/22/17 06:59 04/22/17 08:21 13 UNITS Insulin Glargine (Lantus Solostar Pen) 40 units BID SC 04/22/17 21:00 05/22/17 20:59 Sodium Chloride 1,000 ml @ 100 mls/hr Q10H ONCE IV 04/22/17 08:00 04/22/17 17:59 04/22/17 08:19 100 MLS/HR
[2017-04-22] MEDS: DOXYCYCLINE IV 100 MG in DEXTROSE 5% 100ML 100 ML IV SCH (14:59)
[2017-04-22] MEDS: SIMVASTATIN 20 MG TAB PO SCH (20:32)
[2017-04-22] MEDS: INSULIN GLARGINE SOLOSTAR 100 UNITS/ML 3 ML PEN SC SCH (20:34)
[2017-04-23] VITALS (15 sets, daily range): BP systolic 111–169; BP diastolic 66–92; PULSE 50–96; TEMP 36.2–36.7; O2SAT 93–98
[2017-04-23] MEDS: LEVALBUTEROL 1.25MG/0.5ML NEB INH SCH ×4 (02:15→19:48)
[2017-04-23] MEDS: IPRATROPIUM BROMIDE NEB SOLN 0.02% 2.5 ML VIAL INH SCH ×4 (02:15→19:48)
[2017-04-23] MEDS: DOXYCYCLINE IV 100 MG in DEXTROSE 5% 100ML 100 ML IV SCH ×2 (03:20→14:21)
[2017-04-23 05:51] LABS: HEMATOCRIT 43.2 % (42-52); MEAN CELL VOLUME 92.3 fL (80-100); MEAN CORPUSCULAR HEMOGLOBIN 28.8 pg (25-34); MEAN CORPUSCULAR HGB CONC 31.3 g/dl (32-36); MEAN PLATELET VOLUME 10.1 fL (7.4-10.4); PLATELET COUNT 344 K/uL (130-400); RED BLOOD COUNT 4.68 M/uL (4.7-6.1); WHITE BLOOD COUNT 15.01 K/uL (4.8-10.8)
[2017-04-23 06:50] LABS: ALB/GLOB RATIO 0.6 (0.9-2); ALKALINE PHOSPHATASE 107 U/L (45-117); ALT/SGPT 21 U/L (12-78); BLOOD UREA NITROGEN 17 mg/dl (7-18); CALCIUM 8.7 mg/dl (8.5-10.1); CARBON DIOXIDE 30 mmol/L (21-32); CHLORIDE 101 mmol/L (98-107); CREATININE 0.91 mg/dl (0.60-1.40); GLUCOSE 197 mg/dl (70-99); SODIUM 135 mmol/L (136-145)
[2017-04-23 08:09] LABS: POTASSIUM 3.9 mmol/L (3.5-5.1)
[2017-04-23] MEDS: ALLOPURINOL 300 MG TAB PO SCH (08:09)
[2017-04-23] MEDS: LISINOPRIL 2.5 MG TAB PO SCH (08:09)
[2017-04-23] MEDS: SERTRALINE HCL 50 MG TAB PO SCH (08:09)
[2017-04-23] MEDS: GABAPENTIN 300 MG CAP PO SCH ×3 (08:09→21:16)
[2017-04-23] MEDS: ENOXAPARIN 40 MG/0.4 ML SYR SC SCH (08:10)
[2017-04-23] MEDS: INSULIN ASPART 100 UNITS/ML 3 ML PEN SC SCH ×4 (08:18→21:23)
[2017-04-23] MEDS: INSULIN GLARGINE SOLOSTAR 100 UNITS/ML 3 ML PEN SC SCH ×2 (08:19→21:24)
[2017-04-23] MEDS ORDERED: NURSING DECISION MEDICATION ORDER SCH (10:15)
[2017-04-23] MEDS ORDERED: COUGH DROP (SUGAR FREE) LOZ 24 LOZ/1 BOX PO PRN (10:45)
--- NOTE | 2017-04-23 14:31 | Surgery Consultation ---
Consultation Date of Consultation: Apr 23, 2017. Attending Physician: Jaskaran Sesay M.D. History of Present Illness pt seen. primary complaint as to why he came in was shortness of breath. He states that ever since they started him on oxygen he feels 100% back to normal. no nausea. no abdominal pain. wants to go home. Past Medical/Surgical History Medical Problems: (1) Cellulitis Status: Acute (2) Fever Status: Acute (3) Hypoxia Status: Acute (4) SOB (shortness of breath) Status: Acute Social History Smoking Status: Former Smoker Marital Status: Housing Status: lives with family Allergies Coded Allergies: No Known Allergies (Unverified , 04/21/17) Home Medications Scheduled Allopurinol (Zyloprim), 300 MG PO DAILY Furosemide (Lasix), 40 MG PO DAILY Gabapentin (Neurontin), 300 MG PO TID Glipizide (Glucotrol), 10 MG PO DAILY Lisinopril (Zestril), 2.5 MG PO DAILY Sertraline (Zoloft), 50 MG PO DAILY Simvastatin (Zocor), 20 MG PO QPM Current Inpatient Medications Current Inpatient Medications Medications (Trade) Dose Ordered Sig/Hunter Route Start Time Stop Time Status Last Admin Dose Admin Ipratropium [place] (Atrovent 0.02% 0.5MG/2.5ML Neb) 0.5 mg Q4R PRN INH 04/21/17 20:45 05/21/17 20:44 Levalbuterol (Xopenex 1.25MG/ 0.5ML Neb) 1.25 mg Q4R PRN INH 04/21/17 20:45 05/21/17 20:44 Ioversol (Optiray 320) 100 ml UD PRN IV 04/21/17 23:00 04/25/17 22:59 Enoxaparin Sodium (Lovenox Inj) 40 mg Q24H SC 04/22/17 09:00 05/22/17 08:59 04/23/17 08:10 40 MG Acetaminophen (Tylenol Tab) 650 mg Q4H PRN PO 04/21/17 23:15 05/21/17 23:14 Nitroglycerin (Nitrostat Tab) 0.4 mg UD PRN SL 04/21/17 23:15 05/21/17 23:14 Glucose (Glucose 40% Gel) 15-30 GRAMS 15 GRAMS... UD PRN PO 04/21/17 23:15 05/21/17 23:14 Glucose (Glucose Chew Tab) 4-8 Tablets 4 Tabl... UD PRN PO 04/21/17 23:15 05/21/17 23:14 Dextrose (Dextrose 50% 50ML Syringe) 25-50ML OF 50% DW IV FOR... UD PRN IV 04/21/17 23:15 05/21/17 23:14 Glucagon (Glucagon Inj) 1 mg UD PRN SQ 04/21/17 23:15 05/21/17 23:14 Tramadol HCl (Ultram Tab) not relieved by tylenol @ Q6H PRN PO 04/21/17 23:15 05/21/17 23:14 Morphine Sulfate (MoRPHine SULFATE INJ) 4 mg Q3H PRN IV 04/21/17 23:15 05/05/17 23:14 Ondansetron HCl (Zofran Inj) 4 mg Q6H PRN IV 04/21/17 23:15 05/21/17 23:14 Allopurinol (Zyloprim Tab) 300 mg DAILY PO 04/22/17 09:00 05/22/17 08:59 04/23/17 08:09 300 MG Gabapentin (Neurontin Cap) 300 mg TID PO 04/22/17 09:00 05/22/17 08:59 04/23/17 08:09 300 MG Lisinopril (Zestril Tab) 2.5 mg DAILY PO 04/22/17 09:00 05/22/17 08:59 04/23/17 08:09 2.5 MG Sertraline HCl (Zoloft Tab) 50 mg DAILY PO 04/22/17 09:00 05/22/17 08:59 04/23/17 08:09 50 MG Simvastatin (Zocor Tab) 20 mg QPM PO 04/22/17 21:00 05/22/17 20:59 04/22/17 20:32 20 MG Ipratropium [place] (Atrovent 0.02% 0.5MG/2.5ML Neb) 0.5 mg Q6R INH 04/22/17 03:00 05/22/17 02:59 04/23/17 14:13 0.5 MG Levalbuterol (Xopenex 1.25MG/ 0.5ML Neb) 1.25 mg Q6R INH 04/22/17 03:00 05/22/17 02:59 04/23/17 14:13 1.25 MG Doxycycline Hyclate 100 mg/ Dextrose 110 ml @ 50 mls/hr BID@0300,1500 IV 04/22/17 15:00 05/02/17 14:59 04/23/17 03:20 50 MLS/HR Piperacillin Sod/ Tazobactam Sod (Consult) 1 ea DAILY PRN N/A 04/22/17 09:00 05/22/17 08:59 Insulin Aspart (novoLOG ASPART) SLIDING SCALE If C... ACHS SC 04/22/17 11:00 05/22/17 06:59 04/23/17 12:11 8 UNITS Insulin Glargine (Lantus Solostar Pen) 40 units BID SC 04/22/17 21:00 05/22/17 20:59 04/23/17 08:19 40 UNITS Menthol (Nice Yenifer) 1 yenifer PRN PRN PO 04/23/17 10:45 05/23/17 10:44 Review of Systems Respiratory: + shortness of breath, + dyspnea on exertion Physical Exam Date Time Temp Pulse Resp B/P (MAP) Pulse Ox O2 Delivery O2 Flow Rate FiO2 04/23/17 14:13 78 16 94 Room Air 04/23/17 11:43 36.3 83 18 122/81 (95) 97 3.0 04/23/17 08:30 Nasal Cannula 3.0 CPAP 04/23/17 07:25 36.4 84 20 145/66 (92) 96 04/23/17 07:06 78 16 94 Room Air 04/23/17 04:00 Nasal Cannula 3.0 CPAP 04/23/17 04:00 36.7 96 20 146/92 (110) 98 CPAP 04/23/17 02:16 85 98 3.0 04/23/17 02:15 85 16 98 BiPAP/CPAP 3.0 04/23/17 00:00 36.4 96 20 112/72 (85) 96 Nasal Cannula 3.0 04/23/17 00:00 Nasal Cannula 3.0 CPAP 04/22/17 20:00 36.5 98 20 160/85 (110) 97 Nasal Cannula 3.0 04/22/17 20:00 Nasal Cannula 3.0 04/22/17 19:29 98 16 97 Nasal Cannula 3.0 04/22/17 16:00 Nasal Cannula 3.0 CPAP 04/22/17 15:04 36.7 87 20 118/65 (82) 95 Nasal Cannula 3.0 General Appearance: WD/WN Head: normocephalic Eyes: EOMI, sclerae normal ENT: hearing grossly normal Respiratory/Chest: no respiratory distress, no accessory muscle use, + pertinent finding (on oxygen/resting) Abdomen/GI: normal bowel sounds, non tender, soft, no pulsatile mass Neurologic/Psych: alert, oriented x 3 Laboratory Results Last 24 Hours Test 04/22/17 16:23 04/22/17 20:12 04/23/17 05:36 04/23/17 07:27 Bedside Glucose 169 mg/dl 181 mg/dl White Blood Count 15.01 K/uL Red Blood Count 4.68 M/uL Hemoglobin 13.5 g/dL Hematocrit 43.2 % Mean Corpuscular Volume 92.3 fL Mean Corpuscular Hemoglobin 28.8 pg Mean Corpuscular Hemoglobin Concent 31.3 g/dl RDW Standard Deviation 51.1 fL RDW Coefficient of Variation 15.2 % Platelet Count 344 K/uL Mean Platelet Volume 10.1 fL Sodium Level 135 mmol/L Potassium Level mmol/L 3.9 mmol/L Chloride Level 101 mmol/L Carbon Dioxide Level 30 mmol/L Anion Gap 4.0 mmol/L Blood Urea Nitrogen 17 mg/dl Creatinine 0.91 mg/dl Est Creatinine Clear Calc Drug Dose 103.7 ml/min Estimated GFR () 100.0 Estimated GFR (Non- 86.3 BUN/Creatinine Ratio 19.0 Random Glucose 197 mg/dl Calcium Level 8.7 mg/dl Total Bilirubin 0.6 mg/dl Aspartate Amino Transf (AST/SGOT) U/L 13 U/L Alanine Aminotransferase (ALT/SGPT) 21 U/L Alkaline Phosphatase 107 U/L Total Protein 8.2 gm/dl Albumin 3.0 gm/dl Globulin 5.2 gm/dl Albumin/Globulin Ratio 0.6 Chemistry Specimen Hemolysis Test 04/23/17 07:39 04/23/17 11:35 Bedside Glucose 190 mg/dl 165 mg/dl Assessment & Plan Us showing some cholecystitic fluid and wall thickening. this could be the source of his leukocytosis...however he is completely asymptomatic. he is also currently refusing surgery as he states he feels so good. we discussed that his gallbladder could worsen and he may need surgery and he said he would consent but only if he feels he truly needs it I think it is reasonable to keep him on a short course of antibiotics and low fat/bland diet I suspect he may need lap joanne in the future but no urgency at this moment. He would be moderate to high risk for surgery
[2017-04-23] MEDS ORDERED: DIPHENOXYLATE/ATROPINE 2.5/0.025MG TAB PO ONE (16:45)
[2017-04-23] MEDS: SIMVASTATIN 20 MG TAB PO SCH (21:16)
--- NOTE | 2017-04-23 22:10 | Progress Note ---
Medicine Progress Note Date & Time of Visit: Apr 23, 2017 at 14:00 . Subjective No fever. Respiratory status at baseline. No cough. No chest pain. No abdominal pain, nausea, vomiting. Started experiencing loose stools this morning. No melena or hematochezia. No urinary symptoms. . 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 Laboratory Results: Last 24 Hours Test 04/23/17 05:36 04/23/17 07:27 04/23/17 07:39 04/23/17 11:35 White Blood Count 15.01 K/uL Red Blood Count 4.68 M/uL Hemoglobin 13.5 g/dL Hematocrit 43.2 % Mean Corpuscular Volume 92.3 fL Mean Corpuscular Hemoglobin 28.8 pg Mean Corpuscular Hemoglobin Concent 31.3 g/dl RDW Standard Deviation 51.1 fL RDW Coefficient of Variation 15.2 % Platelet Count 344 K/uL Mean Platelet Volume 10.1 fL Sodium Level 135 mmol/L Potassium Level mmol/L 3.9 mmol/L Chloride Level 101 mmol/L Carbon Dioxide Level 30 mmol/L Anion Gap 4.0 mmol/L Blood Urea Nitrogen 17 mg/dl Creatinine 0.91 mg/dl Est Creatinine Clear Calc Drug Dose 103.7 ml/min Estimated GFR () 100.0 Estimated GFR (Non- 86.3 BUN/Creatinine Ratio 19.0 Random Glucose 197 mg/dl Calcium Level 8.7 mg/dl Total Bilirubin 0.6 mg/dl Aspartate Amino Transf (AST/SGOT) U/L 13 U/L Alanine Aminotransferase (ALT/SGPT) 21 U/L Alkaline Phosphatase 107 U/L Total Protein 8.2 gm/dl Albumin 3.0 gm/dl Globulin 5.2 gm/dl Albumin/Globulin Ratio 0.6 Chemistry Specimen Hemolysis Bedside Glucose 190 mg/dl 165 mg/dl Test 04/23/17 16:10 04/23/17 20:19 Bedside Glucose 158 mg/dl 157 mg/dl Date/Time Source Procedure Growth Status 04/23/17 00:00 Stool C.difficile Toxin B Gene (PCR) - Final No C. difficile toxin B gene detected Complete 04/23/17 00:00 Stool Shiga Toxin Test Pending Received 04/23/17 00:00 Stool Stool Culture Pending Received Assessment & Plan PROBABLE SEPSIS Met criteria for sepsis per 2001 definition and current CMS guidelines. Temp was 38.5. Pulse 120 Resp 24 WBC 16,120 Lactate 2.19 Hemodynamically stable. Possible sources: pulmonary increasing dyspnea, stable cough, no left lung infiltrates on CXR or CT, postsurgical changes right hemithorax cellulitis chronic erythema and superficial ulcerations lower extremities , no change per patient biliary as discussed below Blood and urine cultures obtained in ED. Started on broad spectrum antibiotic coverage with piperacillin / tazobactam and doxycycline pending more data. Remains hemodynamically stable. Repeat lactate was 1.2. Afebrile x 36 hrs. Blood cultures and urine culture negative so far. CHOLELITHIASIS / POSSIBLE CHOLECYSTITIS Cholelithiasis noted on CT of chest. US demonstrated cholelithiasis and gallbladder sludge with adjacent trace pericholecystic fluid. LFT's essentially normal. May have cholecystitis. HIDA scan ordered, but patient declined.. WORSENING DYSPNEA / CHRONIC HYPOXIC RESPIRATORY FAILURE Chronic SOB. History of COPD + lung Ca with right pneumonectomy. Uses supplemental O2 during most of the day and uses O2 with CPAP at night. O2 sat in ED on RA 88%. Worsening SOB at time of presentation could be due to respiratory infection, sepsis, or other factors. Pulmonary embolism ruled out by CTA. Pt states that dyspnea now back to baseline. Continue O2, nebs. HYPERTENSION Hemodynamically stable. DM TYPE 2 Not well controlled. Random glucose in ED 239. FBS 04/22 was 325. Hgb A1C 9.8. Received methylprednisolone 20 mg x 1 in ED. Patient uses insulin at home, but doesn't know the dose. Manage with Lantus + NovoLog per protocol. Fasting blood sugar today = 190. DIARRHEA Check stools for C. difficile. VTE PROPHYLAXIS Enoxaparin. INCOMPLETE DATA Patient uncertain about meds and details of medical history. Records from [place] requested. DISPOSITION Patient requesting transfer to [facility]. Discussed case with physician on duty this morning. General Surgery consultation prior to transfer requested. Primary care follow-up with [facility] in [place]. . Procedures: CTA chest CT pelvis US gallbladder venous duplex lower extremities IV meds . Current Inpatient Medications: Current Inpatient Medications Medications (Trade) Dose Ordered Sig/Hunter Route Start Time Stop Time Status Last Admin Dose Admin Ipratropium [place] (Atrovent 0.02% 0.5MG/2.5ML Neb) 0.5 mg Q4R PRN INH 04/21/17 20:45 05/21/17 20:44 Levalbuterol (Xopenex 1.25MG/ 0.5ML Neb) 1.25 mg Q4R PRN INH 04/21/17 20:45 05/21/17 20:44 Ioversol (Optiray 320) 100 ml UD PRN IV 04/21/17 23:00 04/25/17 22:59 Enoxaparin Sodium (Lovenox Inj) 40 mg Q24H SC 04/22/17 09:00 05/22/17 08:59 04/23/17 08:10 40 MG Acetaminophen (Tylenol Tab) 650 mg Q4H PRN PO 04/21/17 23:15 05/21/17 23:14 Nitroglycerin (Nitrostat Tab) 0.4 mg UD PRN SL 04/21/17 23:15 05/21/17 23:14 Glucose (Glucose 40% Gel) 15-30 GRAMS 15 GRAMS... UD PRN PO 04/21/17 23:15 05/21/17 23:14 Glucose (Glucose Chew Tab) 4-8 Tablets 4 Tabl... UD PRN PO 04/21/17 23:15 05/21/17 23:14 Dextrose (Dextrose 50% 50ML Syringe) 25-50ML OF 50% DW IV FOR... UD PRN IV 04/21/17 23:15 05/21/17 23:14 Glucagon (Glucagon Inj) 1 mg UD PRN SQ 04/21/17 23:15 05/21/17 23:14 Tramadol HCl (Ultram Tab) not relieved by tylenol @ Q6H PRN PO 04/21/17 23:15 05/21/17 23:14 Morphine Sulfate (MoRPHine SULFATE INJ) 4 mg Q3H PRN IV 04/21/17 23:15 05/05/17 23:14 Ondansetron HCl (Zofran Inj) 4 mg Q6H PRN IV 04/21/17 23:15 05/21/17 23:14 Allopurinol (Zyloprim Tab) 300 mg DAILY PO 04/22/17 09:00 05/22/17 08:59 04/23/17 08:09 300 MG Gabapentin (Neurontin Cap) 300 mg TID PO 04/22/17 09:00 05/22/17 08:59 04/23/17 21:16 300 MG Lisinopril (Zestril Tab) 2.5 mg DAILY PO 04/22/17 09:00 05/22/17 08:59 04/23/17 08:09 2.5 MG Sertraline HCl (Zoloft Tab) 50 mg DAILY PO 04/22/17 09:00 05/22/17 08:59 04/23/17 08:09 50 MG Simvastatin (Zocor Tab) 20 mg QPM PO 04/22/17 21:00 05/22/17 20:59 04/23/17 21:16 20 MG Ipratropium [place] (Atrovent 0.02% 0.5MG/2.5ML Neb) 0.5 mg Q6R INH 04/22/17 03:00 05/22/17 02:59 04/23/17 19:48 0.5 MG Levalbuterol (Xopenex 1.25MG/ 0.5ML Neb) 1.25 mg Q6R INH 04/22/17 03:00 05/22/17 02:59 04/23/17 19:48 1.25 MG Doxycycline Hyclate 100 mg/ Dextrose 110 ml @ 50 mls/hr BID@0300,1500 IV 04/22/17 15:00 05/02/17 14:59 04/23/17 14:21 50 MLS/HR Piperacillin Sod/ Tazobactam Sod (Consult) 1 ea DAILY PRN N/A 04/22/17 09:00 05/22/17 08:59 Insulin Aspart (novoLOG ASPART) SLIDING SCALE If C... ACHS SC 04/22/17 11:00 05/22/17 06:59 04/23/17 21:23 1 UNITS Insulin Glargine (Lantus Solostar Pen) 40 units BID SC 04/22/17 21:00 05/22/17 20:59 04/23/17 21:24 40 UNITS Menthol (Nice Yenifer) 1 yenifer PRN PRN PO 04/23/17 10:45 05/23/17 10:44
[2017-04-24] VITALS (10 sets, daily range): BP systolic 107–126; BP diastolic 69–78; PULSE 73–85; TEMP 36.4–36.8; O2SAT 95–100
[2017-04-24] MEDS: IPRATROPIUM BROMIDE NEB SOLN 0.02% 2.5 ML VIAL INH SCH ×3 (01:51→15:45)
[2017-04-24] MEDS: LEVALBUTEROL 1.25MG/0.5ML NEB INH SCH ×3 (01:51→15:45)
[2017-04-24] MEDS: DOXYCYCLINE IV 100 MG in DEXTROSE 5% 100ML 100 ML IV SCH ×2 (02:56→14:33)
[2017-04-24 06:42] LABS: BASO % 0.6 %; BASO ABS # 0.06 K/uL (0-0.2); COMPLETE YES; EOS % 5.2 %; HEMATOCRIT 41.4 % (42-52); IG% 0.3 %; LYMPH % 20.9 %; LYMPH ABS # 2.17 K/uL (1.2-3.4); MEAN CORPUSCULAR HEMOGLOBIN 28.3 pg (25-34); MEAN CORPUSCULAR HGB CONC 30.4 g/dl (32-36); MEAN PLATELET VOLUME 9.9 fL (7.4-10.4); MONO % 8.4 %; NEUT % 64.6 %; PLATELET COUNT 321 K/uL (130-400); RED BLOOD COUNT 4.45 M/uL (4.7-6.1); WHITE BLOOD COUNT 10.39 K/uL (4.8-10.8)
[2017-04-24 07:26] LABS: BUN/CREATININE RATIO 19.9 (10-20); CALCIUM 8.8 mg/dl (8.5-10.1); CREATININE 0.79 mg/dl (0.60-1.40); POTASSIUM 3.9 mmol/L (3.5-5.1)
[2017-04-24] MEDS: INSULIN GLARGINE SOLOSTAR 100 UNITS/ML 3 ML PEN SC SCH (08:46)
[2017-04-24] MEDS: ENOXAPARIN 40 MG/0.4 ML SYR SC SCH (08:47)
[2017-04-24] MEDS: INSULIN ASPART 100 UNITS/ML 3 ML PEN SC SCH ×2 (08:47→12:30)
[2017-04-24] MEDS: SERTRALINE HCL 50 MG TAB PO SCH (08:53)
[2017-04-24] MEDS: ALLOPURINOL 300 MG TAB PO SCH (08:53)
[2017-04-24] MEDS: LISINOPRIL 2.5 MG TAB PO SCH (08:53)
[2017-04-24] MEDS: GABAPENTIN 300 MG CAP PO SCH ×2 (08:53→13:29)
--- NOTE | 2017-04-24 11:44 | Surgery Progress Note ---
Surgery Progress Note Date of Service Apr 24, 2017. Subjective feeling well. fuentes diet. denies abdominal pain Objective Vital Signs: Date Time Temp Pulse Resp B/P (MAP) Pulse Ox O2 Delivery O2 Flow Rate FiO2 04/24/17 11:09 36.4 81 19 122/75 (91) 97 2.0 04/24/17 08:00 98 Nasal Cannula 3.0 04/24/17 07:31 77 16 98 BiPAP/CPAP 3.0 04/24/17 07:22 36.8 82 20 107/69 (82) 100 04/24/17 04:15 36.6 73 20 126/78 (94) 95 BiPAP 04/24/17 04:00 Nasal Cannula 3.0 CPAP 04/24/17 01:52 73 95 3.0 04/24/17 01:51 73 16 95 BiPAP/CPAP 3.0 04/24/17 00:00 Nasal Cannula 3.0 CPAP 04/23/17 23:45 36.6 84 16 129/77 (94) 97 BiPAP 04/23/17 22:36 50 93 3.0 04/23/17 20:00 36.3 88 18 135/81 (99) 97 Nasal Cannula 3.0 88 04/23/17 20:00 95 Nasal Cannula 3.0 CPAP 04/23/17 19:50 57 16 98 Nasal Cannula 3.0 04/23/17 17:59 90 169/89 (115) 04/23/17 16:00 95 Nasal Cannula 3.0 CPAP 04/23/17 15:43 36.2 83 20 111/72 (85) 95 04/23/17 14:13 78 16 94 Room Air 04/23/17 12:00 Nasal Cannula 3.0 CPAP General Appearance: no apparent distress Head: atraumatic Respiratory/Chest: no respiratory distress, no accessory muscle use Abdomen: non tender, non distended, soft Laboratory Results: Results Past 24 Hours Test 04/23/17 16:10 04/23/17 20:19 04/24/17 06:24 04/24/17 07:29 Range/Units Bedside Glucose 158 157 145 70-99 mg/dl White Blood Count 10.39 4.8-10.8 K/uL Red Blood Count 4.45 4.7-6.1 M/uL Hemoglobin 12.6 14.0-18.0 g/dL Hematocrit 41.4 42-52 % Mean Corpuscular Volume 93.0 80-100 fL Mean Corpuscular Hemoglobin 28.3 25-34 pg Mean Corpuscular Hemoglobin Concent 30.4 32-36 g/dl Platelet Count 321 130-400 K/uL Mean Platelet Volume 9.9 7.4-10.4 fL Neutrophils (%) (Auto) 64.6 % Lymphocytes (%) (Auto) 20.9 % Monocytes (%) (Auto) 8.4 % Eosinophils (%) (Auto) 5.2 % Basophils (%) (Auto) 0.6 % Neutrophils # (Auto) 6.72 1.4-6.5 K/uL Lymphocytes # (Auto) 2.17 1.2-3.4 K/uL Monocytes # (Auto) 0.87 0.11-0.59 K/uL Eosinophils # (Auto) 0.54 0-0.5 K/uL Basophils # (Auto) 0.06 0-0.2 K/uL RDW Standard Deviation 51.5 36.4-46.3 fL RDW Coefficient of Variation 15.0 11.5-14.5 % Immature Granulocyte % (Auto) 0.3 % Immature Granulocyte # (Auto) 0.03 0.00-0.02 K/uL Sodium Level 137 136-145 mmol/L Potassium Level 3.9 3.5-5.1 mmol/L Chloride Level 101 98-107 mmol/L Carbon Dioxide Level 31 21-32 mmol/L Anion Gap 5.0 3-11 mmol/L Blood Urea Nitrogen 16 7-18 mg/dl Creatinine 0.79 0.60-1.40 mg/dl Est Creatinine Clear Calc Drug Dose 119.3 ml/min Estimated GFR () 106.9 Estimated GFR (Non- 92.3 BUN/Creatinine Ratio 19.9 10-20 Random Glucose 125 70-99 mg/dl Calcium Level 8.8 8.5-10.1 mg/dl Total Bilirubin 0.5 0.2-1 mg/dl Direct Bilirubin 0.1 0-0.2 mg/dl Aspartate Amino Transf (AST/SGOT) 17 15-37 U/L Alanine Aminotransferase (ALT/SGPT) 18 12-78 U/L Alkaline Phosphatase 106 45-117 U/L Total Protein 7.7 6.4-8.2 gm/dl Albumin 2.9 3.4-5.0 gm/dl Test 04/24/17 11:25 Range/Units Bedside Glucose 133 70-99 mg/dl Assessment & Plan clinically doing well wbc decreased no need for urgent lap joanne agree with antibiotics
--- NOTE | 2017-04-24 12:30 | Progress Note ---
Medicine Progress Note Date & Time of Visit: Apr 24, 2017 at 10:00 . Subjective Feels better. No fever or chills. No cough. SOB at baseline. No chest pain. No abdominal pain, nausea, vomiting. Diarrhea improved. No urinary symptoms. . Objective Last 8 Hrs Date Time Temp Pulse Resp B/P (MAP) Pulse Ox O2 Delivery O2 Flow Rate FiO2 04/24/17 11:09 36.4 81 19 122/75 (91) 97 2.0 04/24/17 08:00 98 Nasal Cannula 3.0 04/24/17 07:31 77 16 98 BiPAP/CPAP 3.0 04/24/17 07:22 36.8 82 20 107/69 (82) 100 Physical Exam: General- no distress Eyes- anicteric Lungs- decreased breath sounds right hemithorax Heart- RRR Abdomen- + BS, soft, nontender Extremities- 2-3+ pretibial edema Neuro- alert, oriented 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 Laboratory Results: Last 24 Hours Test 04/23/17 16:10 04/23/17 20:19 04/24/17 06:24 04/24/17 07:29 Bedside Glucose 158 mg/dl 157 mg/dl 145 mg/dl White Blood Count 10.39 K/uL Red Blood Count 4.45 M/uL Hemoglobin 12.6 g/dL Hematocrit 41.4 % Mean Corpuscular Volume 93.0 fL Mean Corpuscular Hemoglobin 28.3 pg Mean Corpuscular Hemoglobin Concent 30.4 g/dl Platelet Count 321 K/uL Mean Platelet Volume 9.9 fL Neutrophils (%) (Auto) 64.6 % Lymphocytes (%) (Auto) 20.9 % Monocytes (%) (Auto) 8.4 % Eosinophils (%) (Auto) 5.2 % Basophils (%) (Auto) 0.6 % Neutrophils # (Auto) 6.72 K/uL Lymphocytes # (Auto) 2.17 K/uL Monocytes # (Auto) 0.87 K/uL Eosinophils # (Auto) 0.54 K/uL Basophils # (Auto) 0.06 K/uL RDW Standard Deviation 51.5 fL RDW Coefficient of Variation 15.0 % Immature Granulocyte % (Auto) 0.3 % Immature Granulocyte # (Auto) 0.03 K/uL Sodium Level 137 mmol/L Potassium Level 3.9 mmol/L Chloride Level 101 mmol/L Carbon Dioxide Level 31 mmol/L Anion Gap 5.0 mmol/L Blood Urea Nitrogen 16 mg/dl Creatinine 0.79 mg/dl Est Creatinine Clear Calc Drug Dose 119.3 ml/min Estimated GFR () 106.9 Estimated GFR (Non- 92.3 BUN/Creatinine Ratio 19.9 Random Glucose 125 mg/dl Calcium Level 8.8 mg/dl Total Bilirubin 0.5 mg/dl Direct Bilirubin 0.1 mg/dl Aspartate Amino Transf (AST/SGOT) 17 U/L Alanine Aminotransferase (ALT/SGPT) 18 U/L Alkaline Phosphatase 106 U/L Total Protein 7.7 gm/dl Albumin 2.9 gm/dl Test 04/24/17 11:25 Bedside Glucose 133 mg/dl Assessment & Plan PROBABLE SEPSIS Met criteria for sepsis per 2001 definition and current CMS guidelines. Temp was 38.5. Pulse 120 Resp 24 WBC 16,120 Lactate 2.19 Hemodynamically stable. Possible sources: pulmonary increasing dyspnea, stable cough, no left lung infiltrates on CXR or CT, postsurgical changes right hemithorax cellulitis chronic erythema and superficial ulcerations lower extremities , no change per patient biliary as discussed below Blood and urine cultures obtained in ED. Started on broad spectrum antibiotic coverage with piperacillin / tazobactam and doxycycline pending more data. Repeat lactate was 1.2. Remains hemodynamically stable. Afebrile since admission. Blood cultures and urine culture negative so far. WBC down to 10,390. CHOLELITHIASIS / POSSIBLE CHOLECYSTITIS Cholelithiasis noted on CT of chest. US demonstrated cholelithiasis and gallbladder sludge with adjacent trace pericholecystic fluid. LFT's essentially normal. May have cholecystitis. HIDA scan ordered, but patient declined. Surgery consulted. Nonoperative management (i.e., course of IV antibiotics) recommended at this time. WORSENING DYSPNEA / CHRONIC HYPOXIC RESPIRATORY FAILURE Chronic SOB. History of COPD + lung Ca with right pneumonectomy. Uses supplemental O2 during most of the day and uses O2 with CPAP at night. O2 sat in ED on RA 88%. Worsening SOB at time of presentation could be due to respiratory infection, sepsis, or other factors. Pulmonary embolism ruled out by CTA. Pt indicates that dyspnea now back to baseline. Continue O2, nebs. HYPERTENSION Hemodynamically stable. DM TYPE 2 Not well controlled. Random glucose in ED 239. FBS 04/22 was 325. Hgb A1C 9.8. Received methylprednisolone 20 mg x 1 in ED. Patient uses insulin at home, but doesn't know the dose. Manage with Lantus + NovoLog per protocol. Fasting blood sugar today = 145. DIARRHEA Stools negative for C. difficile. Diarrhea improved. VTE PROPHYLAXIS Enoxaparin. INCOMPLETE DATA Patient uncertain about meds and details of medical history. Records from [facility]. DISPOSITION Patient requesting transfer to [facility]. Discussed case with physician on duty. Accepting physician: Dr. Cagle. Receiving physician:: Dr. Woods. Arrangements being made for probable transfer today. [facility] follow[facility] with [facility] in [place]. . Procedures: CTA chest CT pelvis US gallbladder venous duplex lower extremities IV meds . Current Inpatient Medications: Current Inpatient Medications Medications (Trade) Dose Ordered Sig/Hunter Route Start Time Stop Time Status Last Admin Dose Admin Ipratropium Novi (Atrovent 0.02% 0.5MG/2.5ML Neb) 0.5 mg Q4R PRN INH 04/21/17 20:45 05/21/17 20:44 Levalbuterol (Xopenex 1.25MG/ 0.5ML Neb) 1.25 mg Q4R PRN INH 04/21/17 20:45 05/21/17 20:44 Ioversol (Optiray 320) 100 ml UD PRN IV 04/21/17 23:00 04/25/17 22:59 Enoxaparin Sodium (Lovenox Inj) 40 mg Q24H SC 04/22/17 09:00 05/22/17 08:59 04/24/17 08:47 40 MG Acetaminophen (Tylenol Tab) 650 mg Q4H PRN PO 04/21/17 23:15 05/21/17 23:14 Nitroglycerin (Nitrostat Tab) 0.4 mg UD PRN SL 04/21/17 23:15 05/21/17 23:14 Glucose (Glucose 40% Gel) 15-30 GRAMS 15 GRAMS... UD PRN PO 04/21/17 23:15 05/21/17 23:14 Glucose (Glucose Chew Tab) 4-8 Tablets 4 Tabl... UD PRN PO 04/21/17 23:15 05/21/17 23:14 Dextrose (Dextrose 50% 50ML Syringe) 25-50ML OF 50% DW IV FOR... UD PRN IV 04/21/17 23:15 05/21/17 23:14 Glucagon (Glucagon Inj) 1 mg UD PRN SQ 04/21/17 23:15 05/21/17 23:14 Tramadol HCl (Ultram Tab) not relieved by tylenol @ Q6H PRN PO 04/21/17 23:15 05/21/17 23:14 04/24/17 08:52 50 MG Morphine Sulfate (MoRPHine SULFATE INJ) 4 mg Q3H PRN IV 04/21/17 23:15 05/05/17 23:14 Ondansetron HCl (Zofran Inj) 4 mg Q6H PRN IV 04/21/17 23:15 05/21/17 23:14 Allopurinol (Zyloprim Tab) 300 mg DAILY PO 04/22/17 09:00 05/22/17 08:59 04/24/17 08:53 300 MG Gabapentin (Neurontin Cap) 300 mg TID PO 04/22/17 09:00 05/22/17 08:59 04/24/17 08:53 300 MG Lisinopril (Zestril Tab) 2.5 mg DAILY PO 04/22/17 09:00 05/22/17 08:59 04/24/17 08:53 2.5 MG Sertraline HCl (Zoloft Tab) 50 mg DAILY PO 04/22/17 09:00 05/22/17 08:59 04/24/17 08:53 50 MG Simvastatin (Zocor Tab) 20 mg QPM PO 04/22/17 21:00 05/22/17 20:59 04/23/17 21:16 20 MG Ipratropium Novi (Atrovent 0.02% 0.5MG/2.5ML Neb) 0.5 mg Q6R INH 04/22/17 03:00 05/22/17 02:59 04/24/17 07:29 0.5 MG Levalbuterol (Xopenex 1.25MG/ 0.5ML Neb) 1.25 mg Q6R INH 04/22/17 03:00 05/22/17 02:59 04/24/17 07:29 1.25 MG Doxycycline Hyclate 100 mg/ Dextrose 110 ml @ 50 mls/hr BID@0300,1500 IV 04/22/17 15:00 05/02/17 14:59 04/24/17 02:56 50 MLS/HR Piperacillin Sod/ Tazobactam Sod (Consult) 1 ea DAILY PRN N/A 04/22/17 09:00 05/22/17 08:59 Insulin Aspart (novoLOG ASPART) SLIDING SCALE If C... ACHS SC 04/22/17 11:00 05/22/17 06:59 04/24/17 08:47 6 UNITS Insulin Glargine (Lantus Solostar Pen) 40 units BID SC 04/22/17 21:00 05/22/17 20:59 04/24/17 08:46 40 UNITS Menthol (Nice Yenifer) 1 yenifer PRN PRN PO 04/23/17 10:45 05/23/17 10:44
[2017-04-24] MEDS ORDERED: SYMIN160 INH (12:39)
[2017-04-24] MEDS ORDERED: TIOT1SPR INH (12:39)
[2017-04-24] MEDS ORDERED: VTMD1000 PO (12:39)
[2017-04-24] MEDS ORDERED: INSDGIPEN SQ (12:39)
[2017-04-24] MEDS ORDERED: METF-384 PO (12:39)
[2017-04-24] MEDS ORDERED: SENN-65 PO (12:39)
[2017-04-24] MEDS ORDERED: VNTHFA/IN INH (12:39)
[2017-04-24] MEDS ORDERED: NVLGIPEN SC (12:51)
[2017-04-24] MEDS ORDERED: INSDGIPEN SC (12:51)
[2017-04-24] MEDS ORDERED: DOXY-300 PO (12:51)
[2017-04-24] MEDS ORDERED: ZSYI45 IV (12:51)
[2017-04-24] MEDS ORDERED: PIPERACILL/TAZOBAC IV 4.5 GM in DEXTROSE 5% 100ML IV ONE (13:00)
--- NOTE | 2017-04-24 13:10 | Discharge Summary ---
Discharge Summary Date of Service Apr 24, 2017. Discharge Summary Admission Date: Apr 21, 2017 at 22:34 Discharge Date: Apr 24, 2017 Discharge Disposition: Acute care facility ([facility]) Principal Diagnosis: probable sepsis suspected cholecystitis . Secondary Diagnoses/Problems: Chronic and Resolved Medical Problems: (1) Abdominal aortic aneurysm Status: Chronic (2) Chronic respiratory failure Status: Chronic (3) COPD (chronic obstructive pulmonary disease) Status: Chronic (4) Diabetes mellitus, type 2 Status: Chronic (5) Gout Status: Chronic (6) History of lung cancer Permanent Comment: non-small cell; s/p right pneumonectomy 2011 Status: Chronic (7) Hypertension Status: Chronic (8) Nocturnal hypoxia Status: Chronic (9) Psoriasis Status: Chronic Surgical Problems: (1) Status post pneumonectomy Permanent Comment: right lung for Ca Status: Chronic . Procedures: CTA chest CT pelvis US gallbladder venous duplex lower extremities IV meds . Consultations: General Surgery . Admission Information HPI (per Admitting provider): History obtained from the patient, , and ER provider. Patient is a resident of [facility] currently in town for [facility]. Medical history significant for right lung cancer status post surgery, incomplete chemotherapy secondary to intolerance (2011), chronic respiratory failure on home O2, ANGELES on CPAP, Agent orange exposure, past tobacco abuse, hypertension, DM2 insulin requiring, mood disorder, gout. Chronic sacral, leg sores. Yesterday, he began feeling weak, dizzy, more short of breath than usual. No unusual cough symptoms. No chest pain. Patient denies abdominal pain. Some leg swelling, no unusual drainage from the legs, poor appetite. Some urinary incontinence. At the Emergency Room, the patient received Zosyn for sepsis. . Physical Exam (per Admitting): VITAL SIGNS: Blood pressure was noted to be 131/70, pulse rate 120, RR 24-26, sats 88 on room air. 94 on 4 liters. GENERAL: Noted to be in minimal respiratory distress, morbidly obese. SKIN: Normal color. HEENT: [place] palpebral conjunctivae. Dry mucosa. NECK: Short neck. LUNGS: Occasional wheeze. HEART: Tachycardic. ABDOMEN: Some distention. No overt tenderness. EXTREMITIES: Leg wrappings on both lower extremities BACK: Tender induration on the sacrum. NEUROLOGIC: No gross focality. . Hospital Course PROBABLE SEPSIS Met criteria for sepsis per 2001 definition and current CMS guidelines. Temp was 38.5. Pulse 120 Resp 24 WBC 16,120 Lactate 2.19 Hemodynamically stable. Possible sources: pulmonary increasing dyspnea, stable cough, no left lung infiltrates on CXR or CT, postsurgical changes right hemithorax cellulitis chronic erythema and superficial ulcerations lower extremities , no change per patient biliary as discussed below Blood and urine cultures obtained in ED. Started on broad spectrum antibiotic coverage with piperacillin / tazobactam and doxycycline pending more data. Repeat lactate was 1.2. Remains hemodynamically stable. Afebrile since admission. Blood cultures and urine culture negative so far. WBC down to 10,390. Continue doxycycline and piperacillin / tazobactam. Can change doxy to PO at time of transfer. Tentatively, continue antibiotics for 7 additional days depending on clinical course. CHOLELITHIASIS / POSSIBLE CHOLECYSTITIS Cholelithiasis noted on CT of chest. US demonstrated cholelithiasis and gallbladder sludge with adjacent trace pericholecystic fluid. LFT's essentially normal. May have cholecystitis. HIDA scan ordered, but patient declined. Surgery consulted. Nonoperative management (i.e., IV antibiotics) recommended at this time. WORSENING DYSPNEA / CHRONIC HYPOXIC RESPIRATORY FAILURE Chronic SOB. History of COPD + lung Ca with right pneumonectomy. Uses supplemental O2 during most of the day and uses O2 with CPAP at night. O2 sat in ED on RA 88%. Worsening SOB at time of presentation could be due to respiratory infection, sepsis, or other factors. Pulmonary embolism ruled out by CTA. Pt indicates that dyspnea now back to baseline. Continue O2, nebs. HYPERTENSION Hemodynamically stable. DM TYPE 2 Not well controlled. Random glucose in ED 239. FBS 04/22 was 325. Hgb A1C 9.8. Received methylprednisolone 20 mg x 1 in ED. Metformin and glipizide held for acute illness. Manage with Lantus + NovoLog per protocol. Lantus dose increased to 40 mg BID. Received NovoLog ACHS with goal range of 100-140, correction factor 20 mg/DL/ unit, carb ratio 1 unit / 10 grams carbs. Fasting blood sugar day of discharge = 145. Anticipate resumption of usual regimen at time of discharge, perhaps with increased dose of Lantus. DIARRHEA Stools negative for C. difficile. Diarrhea improved. VTE PROPHYLAXIS SQ enoxaparin. Nonambulatory. DISPOSITION Patient requested transfer to [facility]. Discussed case with physician on duty. Accepting physician: Dr. Cagle. Receiving physician:: Dr. Woods. Arrangements being made for probable transfer today. Primary care follow-up with [facility] in [place]. . Total time spent on discharge = 60 min. This includes examination of the patient, discharge planning, medication reconciliation, and communication with other providers. . Discharge Instructions Reported Home Medications Medications Dose Route/Sig Max Daily Dose Days Date Category Spiriva Respimat (Tiotropium [place]) 2.5 Mcg/Act Spr 2 Puff INH DAILY 04/24/17 Reported Glucophage (Metformin Hcl) 1,000 Mg Tab 1,000 Mg PO BID 04/24/17 Reported Lantus Solostar (Insulin Glargine) 100 Unit/Ml Inj 44 Units SQ HS 04/24/17 Reported Senokot S (Senna/Docusate Sodium) 1 Tab Tab 1 Tab PO ACHS 04/24/17 Reported Vitamin D3 (Cholecalciferol) 1,000 Inter.unit Tab 2,000 Units PO DAILY 04/24/17 Reported Symbicort 160/4.5 Inhaler (Budesonide/Formoterol Fumarate) Aero 2 Puffs INH BID 04/24/17 Reported Ventolin Hfa (Albuterol) 200 Puffs/19555 Mcg Aers 2 Puffs INH Q4 PRN 04/24/17 Reported Zocor (Simvastatin) 20 Mg Tab 20 Mg PO QPM 04/21/17 Reported Zyloprim (Allopurinol) 300 Mg Tab 300 Mg PO DAILY 04/21/17 Reported Glucotrol (Glipizide) 10 Mg Tab 10 Mg PO BID 04/21/17 Reported Zoloft (Sertraline HCl) 100 Mg Tab 50 Mg PO DAILY 04/21/17 Reported Zestril (Lisinopril) 2.5 Mg Tab 2.5 Mg PO DAILY 04/21/17 Reported Lasix (Furosemide) 40 Mg Tab 40 Mg PO DAILY 04/21/17 Reported Neurontin (Gabapentin) 300 Mg Cap 300 Mg PO TID 04/21/17 Reported Current Inpatient Medications Medications (Trade) Dose Ordered Sig/Hunter Route Start Time Stop Time Status Last Admin Dose Admin Ipratropium [place] (Atrovent 0.02% 0.5MG/2.5ML Neb) 0.5 mg Q4R PRN INH 04/21/17 20:45 05/21/17 20:44 Levalbuterol (Xopenex 1.25MG/ 0.5ML Neb) 1.25 mg Q4R PRN INH 04/21/17 20:45 05/21/17 20:44 Ioversol (Optiray 320) 100 ml UD PRN IV 04/21/17 23:00 04/25/17 22:59 Enoxaparin Sodium (Lovenox Inj) 40 mg Q24H SC 04/22/17 09:00 05/22/17 08:59 04/24/17 08:47 40 MG Acetaminophen (Tylenol Tab) 650 mg Q4H PRN PO 04/21/17 23:15 05/21/17 23:14 Nitroglycerin (Nitrostat Tab) 0.4 mg UD PRN SL 04/21/17 23:15 05/21/17 23:14 Glucose (Glucose 40% Gel) 15-30 GRAMS 15 GRAMS... UD PRN PO 04/21/17 23:15 05/21/17 23:14 Glucose (Glucose Chew Tab) 4-8 Tablets 4 Tabl... UD PRN PO 04/21/17 23:15 05/21/17 23:14 Dextrose (Dextrose 50% 50ML Syringe) 25-50ML OF 50% DW IV FOR... UD PRN IV 04/21/17 23:15 05/21/17 23:14 Glucagon (Glucagon Inj) 1 mg UD PRN SQ 04/21/17 23:15 05/21/17 23:14 Tramadol HCl (Ultram Tab) not relieved by tylenol @ Q6H PRN PO 04/21/17 23:15 05/21/17 23:14 04/24/17 08:52 50 MG Morphine Sulfate (MoRPHine SULFATE INJ) 4 mg Q3H PRN IV 04/21/17 23:15 05/05/17 23:14 Ondansetron HCl (Zofran Inj) 4 mg Q6H PRN IV 04/21/17 23:15 05/21/17 23:14 Allopurinol (Zyloprim Tab) 300 mg DAILY PO 04/22/17 09:00 05/22/17 08:59 04/24/17 08:53 300 MG Gabapentin (Neurontin Cap) 300 mg TID PO 04/22/17 09:00 05/22/17 08:59 04/24/17 08:53 300 MG Lisinopril (Zestril Tab) 2.5 mg DAILY PO 04/22/17 09:00 05/22/17 08:59 04/24/17 08:53 2.5 MG Sertraline HCl (Zoloft Tab) 50 mg DAILY PO 04/22/17 09:00 05/22/17 08:59 04/24/17 08:53 50 MG Simvastatin (Zocor Tab) 20 mg QPM PO 04/22/17 21:00 05/22/17 20:59 04/23/17 21:16 20 MG Ipratropium [place] (Atrovent 0.02% 0.5MG/2.5ML Neb) 0.5 mg Q6R INH 04/22/17 03:00 05/22/17 02:59 04/24/17 07:29 0.5 MG Levalbuterol (Xopenex 1.25MG/ 0.5ML Neb) 1.25 mg Q6R INH 04/22/17 03:00 05/22/17 02:59 04/24/17 07:29 1.25 MG Doxycycline Hyclate 100 mg/ Dextrose 110 ml @ 50 mls/hr BID@0300,1500 IV 04/22/17 15:00 05/02/17 14:59 04/24/17 02:56 50 MLS/HR Piperacillin Sod/ Tazobactam Sod (Consult) 1 ea DAILY PRN N/A 04/22/17 09:00 05/22/17 08:59 Insulin Aspart (novoLOG ASPART) SLIDING SCALE If C... ACHS SC 04/22/17 11:00 05/22/17 06:59 04/24/17 12:30 5 UNITS Insulin Glargine (Lantus Solostar Pen) 40 units BID SC 04/22/17 21:00 05/22/17 20:59 04/24/17 08:46 40 UNITS Menthol (Nice Yenifer) 1 yenifer PRN PRN PO 04/23/17 10:45 05/23/17 10:44 Piperacillin Sod/ Tazobactam Sod 4.5 gm/Dextrose 120 ml @ 200 mls/hr NOW ONCE IV 04/24/17 13:00 04/24/17 13:35 Piperacillin Sod/ Tazobactam Sod 4.5 gm/Dextrose 120 ml @ 30 mls/hr Q8H IV 04/24/17 18:00 05/04/17 17:59 May change doxycycline to 100 mg PO BID at time of discharge. Tentative duration of doxycycline and piperacillin / tazobactam 7 additional days, depending on clinical course. CONDITION: stable VITALS: routine ALLERGIES: NKDA ACTIVITY: as tolerated with assistance (usually uses scooter) NURSING: fingerstick blood sugars AC + HS DIET: AHA, diabetic IV: peripheral saline lock WOUND CARE: as directed by [facility] O2: 3 L / min via NC during day and CPAP during night VTE PROPHYLAXIS: SQ enoxaparin CODE STATUS: full resuscitation Thank you for receiving this patient in transfer. Please call if you have any questions. aJskaran Sesay .
[2017-04-24] MEDS ORDERED: PIPERACILL/TAZOBAC IV 4.5 GM in DEXTROSE 5% 100ML IV SCH (18:00)
== END 2017-04-24 16:58 | disposition short-term general hospital (02) | DRG 872 ==
LOC: EDBD 17:14 → C.EDC 17:15 → C.MED 22:34 → ENRESERV 22:48
PROVIDERS: ADMIT Hospitalist; ATTEND Hospitalist
DX: A41.9 Sepsis, unspecified organism (principal); J96.11 Chronic respiratory failure with hypoxia; K80.18 Calculus of gallbladder with other cholecystitis without obstruction; L03.115 Cellulitis of right lower limb; L03.116 Cellulitis of left lower limb; G47.33 Obstructive sleep apnea (adult) (pediatric); I10 Essential (primary) hypertension; E11.65 Type 2 diabetes mellitus with hyperglycemia; E11.51 Type 2 diabetes mellitus with diabetic peripheral angiopathy without gangrene; R19.7 Diarrhea, unspecified; F39 Unspecified mood [affective] disorder; M10.9 Gout, unspecified; Z77.098 Contact with and (suspected) exposure to other hazardous, chiefly nonmedicinal, chemicals; Z99.81 Dependence on supplemental oxygen; Z85.118 Personal history of other malignant neoplasm of bronchus and lung; Z90.2 Acquired absence of lung [part of]; Z87.891 Personal history of nicotine dependence; Z79.4 Long term (current) use of insulin; Z79.84 Long term (current) use of oral hypoglycemic drugs; Z79.899 Other long term (current) drug therapy; Z83.3 Family history of diabetes mellitus